=== PATIENT | female | born 1985 | race African-American/Black ===

== ENCOUNTER 2016-10-16 17:13 | Emergency (ER) | payer OTHER, BC ==
--- NOTE | ~2016-10-16 | EKG ---
PATIENT: ALIYA GRAHAM UNIT #: [id number] Ventricular Rate: 106 BPM Atrial Rate: 106 BPM P-R Interval: 126 ms QRS Duration: 80 ms Q-T Interval: 316 ms QTC Calculation(Bezet): 419 ms P [place]: 38 degrees Calculated R [place]: -2 degrees Calculated T [place]: 20 degrees Diagnosis Line: Sinus tachycardia with Premature atrial complexes Diagnosis Line: Otherwise normal ECG Diagnosis Line: When compared with ECG of 13-APR-2016 15:16, Diagnosis Line: Premature atrial complexes are now Present Diagnosis Line: Nonspecific T wave abnormality no longer evident Diagnosis Line: in Anterior leads Diagnosis Line: Confirmed by KALI HUTCHISON MD ([id number]) on Diagnosis Line: 10/21/2016 8:38:39 AM INTERPRETING MD: KIANNA SUN
[~2016-10-16 17:13] MED LIST: ABILIFY2 MG PO; BACTRIM DS TABL1 TA2 PO; BENLYSTA120 MG IV; BENLYSTA400 MG IV; BIRTH CONTROL PILL PO; CARAFATE PO; CYTOTEC PO; DEPO-PROVER150 MG/ML INJ; DESYREL50 MG PO; DICLOFENAC PO; EFFEXOR37.5 MG PO; ELIQUIS2.5 MG PO; FIORICET1 TAB PO; FLEXERIL10 M1 PO; HYDROCODON-ACE1 EAC9 PO; LINZESS145 MCG PO; LORTAB 10-3251 EACH PO; LORTAB 5-325 M1 EACH PO; LORTAB 7.5-3251 EACH PO; LYRICA75 MG PO; MEDI-MECLIZINE25 M1 PO; MEDROL DOSEPAK4 MG PO; METOPROLOL SUCC50 MG PO; MOBIC PO; MULTIVITAMIN W-1 TAB; NEURONTIN PO; NEURONTIN300 MG PO; NEXIUM PO; NORVASC10 MG PO; ONDANSETRON ODT4 MG DOB; PHENERGAN SUPP25 MG PR; PHENERGAN25 M1 PO; PLAQUENIL200 MG PO; PRILOSEC PO; RANITIDINE HCL300 MG PO; REGLAN10 MG PO; REQUIP0.25 MG PO; ROBAXIN500 MG PO; ROPINIROLE HC0.25 MG PO; SENNA-S TABLET1 EACH PO; SKELAXIN PO; TOPROL XL PO; ULTRAM PO; VICODIN 5/500 T1 TAB PO; VOLTAREN50 MG PO; VOLTAREN75 MG PO; WELLBUTRIN PO; XARELTO20 MG PO; ZITHROMAX PO; ZOFRAN PO
[2016-10-16 18:02] LABS: BASOPHIL# 0.1 X10e3 (0-0.3); BASOPHIL% 0.4 % (0-2.5); EOSINOPHIL% 0.2 % (0.0-7.0); HEMATOCRIT 43.5 % (35.0-45.0); HEMOGLOBIN 14.6 gm/dL (12.0-16.0); LYMPHOCYTE# 4.5 X10e3 (1.0-3.5); LYMPHOCYTE% 31.6 % (17.0-45.0); MEAN CORPUSCULAR HGB CONC 33.7 g/dL (30-36); MEAN PLATELET VOLUME 8.2 FL (6.5-11.5); MONOCYTE# 1.2 X10e3 (0-1.0); MONOCYTE% 8.2 % (3.0-12.0); NEUTROPHIL# 8.6 X10e3 (1.5-7.1); NEUTROPHIL% 59.6 % (40-75); PLATELET COUNT 250 X10e3 (140-420); RED BLOOD COUNT 4.73 X10e (3.90-5.30); RED CELL DISTRIBUTION WIDTH 16.1 % (11.0-15.5); WHITE BLOOD COUNT 14.4 X10e3 (4.0-10.5)
[2016-10-16 18:05] LABS: DIFF IND NO
[2016-10-16 18:11] LABS: INR 1.1; PROTHROMBIN TIME (PATIENT) 12.8 SECONDS (9.5-12.4)
[2016-10-16 18:18] LABS: POC - CKMB <1.0 ng/mL (0.0-7.9); POC - TROPONIN <0.05 ng/mL (<=0.05)
[2016-10-16 18:19] LABS: ALBUMIN SERUM 3.9 g/dL (3.5-5.0); BILIRUBIN, DIRECT 0.1 mg/dL (0.0-0.2); BILIRUBIN,INDIRECT 0.3 mg/dL (0.0-0.9); BILIRUBIN,TOTAL 0.4 mg/dL (0.2-2.0); BUN/CREATININE RATIO 23.75; CALCIUM SERUM 8.8 mg/dL (8.4-10.2); CREATININE SERUM 0.8 mg/dL (0.6-1.4); GLOM FILT RATE Estimated 112.4 mL/min (>60); PARTIAL THROMBOPLASTIN TIME 29.4 SECONDS (25.6-38.1); POTASSIUM 3.2 mmol/L (3.5-5.1); PROTEIN TOTAL SERUM 6.8 g/dL (6.0-8.3)
[2016-10-16 19:51] LABS: POC - CKMB <1.0 ng/mL (0.0-7.9); POC - TROPONIN <0.05 ng/mL (<=0.05)
== END 2016-10-16 20:08 | disposition home or self-care (01) ==
LOC: SED 17:13
PROVIDERS: Emergency Medicine
DX: E86.0 Dehydration (principal); M32.9 Systemic lupus erythematosus, unspecified; K21.9 Gastro-esophageal reflux disease without esophagitis; Z90.49 Acquired absence of other specified parts of digestive tract; Z88.1 Allergy status to other antibiotic agents; Z88.8 Allergy status to other drugs, medicaments and biological substances; Z79.899 Other long term (current) drug therapy
CPT/HCPCS: 36415; 71275; 80048; 80076; 82553; 84443; 84484; 84703; 85025; 85610; 85730; 93005; 96361; 96374; 99285; J1642; Q9967